=== PATIENT | female | born 1995 | race Two or more races ===

== ENCOUNTER 2016-02-26 04:59 | Emergency (ER) | payer MEDICAID ==
[~2016-02-26] VITALS: Ht 165.1 cm; Wt 81.6 kg
[2016-02-26 05:01] VITALS: BP 132/60
== END 2016-02-26 08:14 | disposition left against medical advice (07) ==
LOC: ER 05:03
DX: H92.01 Otalgia, right ear (principal); R68.84 Jaw pain; Z53.21 Procedure and treatment not carried out due to patient leaving prior to being seen by health care provider